=== PATIENT | female | born 1950 | race African-American/Black ===

== ENCOUNTER 2017-11-13 06:08 | Emergency (ER) | payer OTHER ==
[~2017-11-13] VITALS: Ht 172.7 cm; Wt 81.6 kg
[~2017-11-13 06:08] MED LIST: AML5T PO; FLUT1SPR5; NORT25CA PO; OLOP1DRO2 OP; OMEP20CA74 PO; SIMV20TA90 PO; TRIA75TA55 PO
[2017-11-13] MEDS ORDERED: SODIUM CHLORIDE 0.9% 1,000 ML IVB ONE (08:46)
[2017-11-13] MEDS ORDERED: PROMETHAZINE HCL 25 MG/ML 1ML IV PRN (09:00)
[2017-11-13] MEDS ORDERED: KETOROLAC TROMETH 30 MG/ML 1ML VIAL IV ONE (09:00)
[2017-11-13 10:01] LABS: Basophils # (auto) 0 uL; Basophils % (auto) 0.2 % (0.0-2.0); Eosinophils # (auto) 0 uL; Hematocrit 36.9 % (36.0-46.0); Hemoglobin 12.1 g/dL (12.2-16.2); Lymphocytes # (auto) 0.9 uL; Lymphocytes % (auto) 8.4 % (10.0-50.0); Mean Corpuscular Hemoglobin 32.2 pg (28.0-32.0); Mean Corpuscular Hgb Conc. 32.7 g/dL (32.0-36.0); Mean Corpuscular Volume 98.6 fL (80.0-100.0); Monocytes # (auto) 0.4 uL; Monocytes % (auto) 3.6 % (0.0-12.0); Neutrophils # (auto) 9.4 uL; Neutrophils % (auto) 87.8 % (37.0-80.0); Platelet Count (auto) 205 10^3/uL (140-450); Red Blood Cells 3.75 10^6/uL (4.0-5.20); Red Cell Distribution Width 13.9 % (11.8-14.3); White Blood Cell 10.7 10^3/uL (4.4-10.8)
[2017-11-13 10:07] LABS: Albumin 3.7 g/dL (3.4-5.0); Calcium 8.9 mg/dL (8.5-10.1); Magnesium 2.2 mg/dL (1.6-2.6); Potassium 3.8 mmol/L (3.5-5.1)
[2017-11-13 10:10] LABS: BUN/Creatinine Ratio 11.9; Bilirubin, Total 0.8 mg/dL (0.2-1.0); Total Protein 8.5 g/dL (6.4-8.2)
[2017-11-13 11:26] VITALS: BP 103/65
[2017-11-13 12:00] LABS: Urine Bacteria FEW /hpf (None Seen); Urine Blood Negative /uL (Negative); Urine Specific Gravity 1.013 (1.001-1.035); Urine WBC 2 /hpf (0 - 5)
[2017-11-13] MEDS ORDERED: cefTRIAXone 1GM/10ml IVPUSH 10 ML IV ONE (12:30)
== END 2017-11-13 13:33 | disposition home or self-care (01) ==
LOC: ER 06:08 → EDBD 06:08 → ER 13:33
DX: N39.0 Urinary tract infection, site not specified (principal); R11.2 Nausea with vomiting, unspecified; K21.9 Gastro-esophageal reflux disease without esophagitis; E78.5 Hyperlipidemia, unspecified; I10 Essential (primary) hypertension; M19.90 Unspecified osteoarthritis, unspecified site; Z90.710 Acquired absence of both cervix and uterus; Z88.0 Allergy status to penicillin; Z88.2 Allergy status to sulfonamides
CPT/HCPCS: 36415; 71046; 74176; 80053; 81001; 83690; 83735; 85025; 93005; 96374; 96375; 99285; J0696; J1885; J2550; J7030

== ENCOUNTER 2017-12-04 22:29 | Emergency (ER) | payer OTHER ==
[~2017-12-04] VITALS: Ht 172.7 cm; Wt 79.4 kg
[2017-12-05 05:50] LABS: Basophils # (auto) 0 uL; Basophils % (auto) 0.8 % (0.0-2.0); Eosinophils # (auto) 0 uL; Eosinophils % (auto) 0.3 % (0.0-7.0); Hemoglobin 12.8 g/dL (12.2-16.2); Lymphocytes # (auto) 2.5 uL; Lymphocytes % (auto) 45.9 % (10.0-50.0); Mean Corpuscular Hgb Conc. 34.6 g/dL (32.0-36.0); Mean Corpuscular Volume 98.1 fL (80.0-100.0); Monocytes # (auto) 0.5 uL; Monocytes % (auto) 9.1 % (0.0-12.0); Neutrophils # (auto) 2.4 uL; Neutrophils % (auto) 43.9 % (37.0-80.0); Nucleated Red Blood Cells % 0.1 %; Platelet Count (auto) 225 10^3/uL (140-450); Red Blood Cells 3.78 10^6/uL (4.0-5.20); Red Cell Distribution Width 13.7 % (11.8-14.3); White Blood Cell 5.4 10^3/uL (4.4-10.8)
[2017-12-05 06:09] LABS: Calcium 9.3 mg/dL (8.5-10.1); Chloride 98 mmol/L (98-107); Sodium 136 mmol/L (136-145)
[2017-12-05 06:13] LABS: Albumin 4.3 g/dL (3.4-5.0); Anion Gap 10 (5-15); Blood Urea Nitrogen 18 mg/dL (7-18); Carbon Dioxide 28 mmol/L (21-32); GFR African American 49 mL/min; GFR Non-African American 41 mL/min; Glucose 101 mg/dL (74-106); Magnesium 2.3 mg/dL (1.6-2.6)
[2017-12-05 06:18] LABS: Alanine Aminotransferase 20 U/L (13-56); Alkaline Phosphatase 72 U/L (45-117); Aspartate Aminotransferase 20 U/L (15-37); Bilirubin, Total 0.7 mg/dL (0.2-1.0); Total Protein 9.5 g/dL (6.4-8.2)
[2017-12-05] MEDS ORDERED: POTASSIUM EFFERVESENT TAB 25 MEQ PO ONE (06:45)
[2017-12-05 11:49] VITALS: BP 124/67
[2017-12-05 11:53] LABS: Urine Bacteria FEW /hpf (None Seen); Urine Blood Negative /uL (Negative); Urine Specific Gravity 1.016 (1.001-1.035); Urine WBC 1 /hpf (0 - 5)
== END 2017-12-05 12:28 | disposition home or self-care (01) ==
LOC: ER 22:29
DX: R07.89 Other chest pain (principal); E87.6 Hypokalemia; I12.9 Hypertensive chronic kidney disease with stage 1 through stage 4 chronic kidney disease, or unspecified chronic kidney disease; N18.3 Chronic kidney disease, stage 3 (moderate); M19.90 Unspecified osteoarthritis, unspecified site; K21.9 Gastro-esophageal reflux disease without esophagitis; E78.5 Hyperlipidemia, unspecified; J44.9 Chronic obstructive pulmonary disease, unspecified; Z90.710 Acquired absence of both cervix and uterus; Z88.0 Allergy status to penicillin; Z88.8 Allergy status to other drugs, medicaments and biological substances; Z88.2 Allergy status to sulfonamides; Z79.899 Other long term (current) drug therapy
CPT/HCPCS: 36415; 71046; 80053; 81001; 83735; 84484; 85025; 93005